=== PATIENT | male | born 1945 | race Caucasian/White ===

== ENCOUNTER 2017-09-06 06:47 | Inpatient (IN) | payer OTHER ==
[~2017-09-06] VITALS: Ht 121.9 cm; Wt 5.0 kg
[~2017-09-06 06:47] MED LIST: CARAFATE1 G PO; METFORMIN HCL500 MG PO; PEPCID40 MG PO; PRILOSEC20 MG PO; SIMVASTATIN40 MG PO; SYNTHROID50 MCG PO; ZOFRAN4 MG PO; [UNRECOGNIZED DRUG - CODE] MC
[2017-09-08] MEDS ORDERED: MIRALAX17 GM PO (08:59)
[2017-09-08] MEDS ORDERED: PEPCID20 MG PO (13:32)
== END 2017-09-08 13:37 | disposition home or self-care (01) | DRG 390 ==
LOC: ER 06:47 → SURH 14:54
PROC: BW21YZZ Computerized Tomography (CT Scan) of Abdomen and Pelvis using Other Contrast (ICD-10-PCS; principal; 2017-09-06)
DX: K56.690 Other partial intestinal obstruction (principal)

== ENCOUNTER 2020-03-06 08:54 | Emergency (ER) | payer OTHER ==
[~2020-03-06] VITALS: Ht 152.4 cm; Wt 65.8 kg
[~2020-03-06 08:54] MED LIST changes: +MIRALAX17 GM PO; +PEPCID20 MG PO
== END 2020-03-06 18:11 | disposition home or self-care (01) ==
LOC: ER 08:54
DX: K52.89 Other specified noninfective gastroenteritis and colitis (principal); Z03.818 Encounter for observation for suspected exposure to other biological agents ruled out; R10.84 Generalized abdominal pain

== ENCOUNTER → 2021-09-22 | Emergency (ER) | payer OTHER ==
[~2021-09-22] VITALS: Ht 162.6 cm; Wt 62.6 kg
== END | disposition home or self-care (01) ==
LOC: ER 07:25
DX: K29.70 Gastritis, unspecified, without bleeding (principal); E86.0 Dehydration; I10 Essential (primary) hypertension; E11.9 Type 2 diabetes mellitus without complications; E03.9 Hypothyroidism, unspecified; Z79.84 Long term (current) use of oral hypoglycemic drugs; R11.2 Nausea with vomiting, unspecified; R10.9 Unspecified abdominal pain

== ENCOUNTER 2022-01-03 02:56 | Inpatient (IN) | payer OTHER ==
[~2022-01-03] VITALS: Ht 162.6 cm; Wt 63.5 kg
--- NOTE | 2022-01-03 03:15 | NUR ---
SE RECIBE PTE MASCULINO ALERTA Y ORIENTADO EN LAS GRICEL ESFERAS REFIERE DOLOR ABDOMINAL Y VOMITOS X10 DESDE JOANNA EN LA NOCHE.
--- NOTE | 2022-01-03 04:35 | NUR ---
PACIENTE EVALUADO POR EL QUIEN ORDENA TRATAMIENTO MEDICO. SE ORIENTA PACIENTE SOBRE EL MISMO CANDELARIO REFIERE ENTENDER. RN VITALE REALIZA MUESTRAS BAJO MEDIDAS ASEPTICAS Y ADMINISTRA MEDICAMENTOS [place] ORDEN.SE HACE ENTREGA DE CONTRASTE PO.
--- NOTE | 2022-01-03 07:36 | NUR ---
SE RECIBE PTE ALERTAS, CONCIENTE EN CAMA BAJA CON BARANDAS ELEVADAS POR SEGURIDAD. SE OBSERVA PTE CON BUEN PATRON RESPIRATORIO, CANALIZADO EN PERIFERAL LT CON ANGIO #18 PATENTE. RECIBIENDO 0.9 NSS BAJANDO 150ML/HR. PEND MUESTRA DE UA PEND. PTE NPO. PEND CT ABDOMINAL CON CONTRASTE PO. SE MANITENE BAJO OBSERVACION POR CAMBIOS SIGNIFICATIVOS.
--- NOTE | 2022-01-03 10:18 | NUR ---
SE REALIZA ADMINISTRACION DE MEDICAMENTOS POR ORDEN MEDICA, SE ORIENTA PACIENTE SOBRE USO Y EFECTOS.
--- NOTE | 2022-01-03 16:01 | NUR ---
PTE ALERTA Y ORIENTADO X 3 ESFERAS EN COMPANIA DE FAMILIAR,EN JESSI CON BARANDAS ELEVADAS,SIENDO EVALUADO POR DR Brant REZA.
[2022-01-05] MEDS ORDERED: INTESTINEX680 M1 PO (08:27)
== END 2022-01-05 11:41 | disposition home or self-care (01) | DRG 389 ==
LOC: ER 02:56 → MEDJ 16:43
PROVIDERS: ADMIT Internal Medicine; ATTEND Internal Medicine
PROC: BW21YZZ Computerized Tomography (CT Scan) of Abdomen and Pelvis using Other Contrast (ICD-10-PCS; principal; 2022-01-03)
DX: K56.600 Partial intestinal obstruction, unspecified as to cause (principal); B19.9 Unspecified viral hepatitis without hepatic coma; R14.0 Abdominal distension (gaseous); K40.90 Unilateral inguinal hernia, without obstruction or gangrene, not specified as recurrent; K59.09 Other constipation; K57.30 Diverticulosis of large intestine without perforation or abscess without bleeding; R74.01 Elevation of levels of liver transaminase levels; E11.9 Type 2 diabetes mellitus without complications; Z79.4 Long term (current) use of insulin; E03.9 Hypothyroidism, unspecified

== ENCOUNTER 2022-02-08 05:35 | Day surgery (SDC) | payer OTHER ==
[~2022-02-08] VITALS: Ht 162.6 cm; Wt 63.5 kg
[~2022-02-08 05:35] MED LIST changes: +INTESTINEX680 M1 PO; +PROBIOTIC1 EAC4 PO
[2022-02-08] MEDS ORDERED: ULTRAM50 MG PO (10:53)
[2022-02-08] MEDS ORDERED: TYLENOL ARTHRI650 MG PO (10:53)
[2022-02-08] MEDS ORDERED: MIRALAX17 GM PO (10:53)
== END 2022-02-08 14:10 | disposition home or self-care (01) ==
LOC: CIR.AMB 05:35
PROVIDERS: ATTEND Surgery
DX: K40.20 Bilateral inguinal hernia, without obstruction or gangrene, not specified as recurrent (principal); Z20.822 Contact with and (suspected) exposure to COVID-19; Z88.6 Allergy status to analgesic agent; E11.9 Type 2 diabetes mellitus without complications; E03.9 Hypothyroidism, unspecified; Z79.84 Long term (current) use of oral hypoglycemic drugs
CPT/HCPCS: 49650; C1781

== ENCOUNTER 2022-11-08 21:30 | Emergency (ER) | payer OTHER ==
[~2022-11-08] VITALS: Ht 162.6 cm; Wt 66.2 kg
[~2022-11-08 21:30] MED LIST changes: +TYLENOL ARTHRI650 MG PO; +ULTRAM50 MG PO
[2022-11-09] MEDS ORDERED: LEVSIN/SL0.125 MG SL (04:24)
== END 2022-11-09 04:55 ==
LOC: ER 21:30
DX: R10.9 Unspecified abdominal pain (principal); Z88.6 Allergy status to analgesic agent; K57.30 Diverticulosis of large intestine without perforation or abscess without bleeding

== ENCOUNTER 2023-08-28 11:55 | Emergency (ER) | payer OTHER ==
[~2023-08-28] VITALS: Ht 162.6 cm; Wt 63.5 kg
[~2023-08-28 11:55] MED LIST changes: +LEVSIN/SL0.125 MG SL
[2023-08-28] MEDS ORDERED: MAGNESIUM HYDROXIDE 400 MG/5 ML ML PO STA (13:55)
[2023-08-28] MEDS ORDERED: LACTULOSE 10 G/15 ML ML PO STA (13:56)
== END 2023-08-28 16:26 | disposition home or self-care (01) ==
LOC: ER 11:55
DX: R10.9 Unspecified abdominal pain (principal); K59.00 Constipation, unspecified; Z88.6 Allergy status to analgesic agent

== ENCOUNTER 2025-05-16 09:33 | Emergency (ER) | payer OTHER ==
[~2025-05-16] VITALS: Ht 162.6 cm; Wt 61.2 kg
[2025-05-16] MEDS ORDERED: FAMOTIDINE/PF 20 MG/2 ML VIAL IV PUSH STA (10:02)
[2025-05-16] MEDS ORDERED: HYOSCYAMINE SULFATE 0.125 MG TAB.SUBL SL STA (10:03)
[2025-05-16] MEDS ORDERED: ONDANSETRON HCL 2 MG/ML VIAL IV STA (10:03)
[2025-05-16] MEDS ORDERED: DIATRIZOATE MEGLUMINE, SODIUM 30 ML BOTTLE PO STA (10:04)
[2025-05-16] MEDS ORDERED: 0.9 % SODIUM CHLORIDE 1,000 ML IV STA (10:05)
[2025-05-16] MEDS ORDERED: ONDANSETRON HCL 2 MG/ML VIAL ONE (10:06)
[2025-05-16] MEDS ORDERED: HYOSCYAMINE SULFATE 0.125 MG TAB.SUBL ONE (10:06)
[2025-05-16] MEDS ORDERED: DIATRIZOATE MEGLUMINE, SODIUM 30 ML BOTTLE ONE (10:07)
[2025-05-16] MEDS ORDERED: FAMOTIDINE/PF 20 MG/2 ML VIAL ONE (10:07)
[2025-05-16 10:49] LABS: BASO % 0.5 % (0.1-1.2); EOS # 0.07 (0.04-0.54); EOS % 0.8 % (0.7-7.0); LYMPH # 1.81 (1.18-3.74); LYMPH % 21.7 % (19.3-53.1); MEAN PLATELET VOLUME 9.80 fl (9.4-12.4); MONO # 0.64 (0.24-0.82); MONO % 7.7 % (4.7-12.5); NEUT # 5.75 (1.56-6.13); NEUT % 69.1 % (34.0-71.1); RED CELL DISTRIBUTION WIDTH 13.3 % (11.6-14.4)
[2025-05-16 10:52] LABS: ERYTHROCYTE SEDIMENTATION RATE 12 mm/hr (0-20)
[2025-05-16 11:10] LABS: URINE APPEARANCE Clear; URINE BILIRRUBIN Small (NEGATIVE); URINE BLOOD Negative; URINE COLOR Dark Yellow; URINE GLUCOSE Negative (NEGATIVE); URINE KETONE Trace (NEGATIVE); URINE LEUKOCYTE Trace; URINE NITRATE Negative; URINE PROTEIN Trace (NEGATIVE); URINE UROBILINOGEN 1.0 E.U./dl
[2025-05-16 11:13] LABS: URINE BACTERIA 16.0 uL (0.0-1933); URINE EPITHELIAL CELLS 8.5 uL (0.0-38.8); URINE RBC 11.7 uL (0.0-20.8); URINE WBC 5.5 uL (0.0-23.2)
[2025-05-16 11:19] LABS: URINE CAST 0.14 uL (0.0-1.40)
[2025-05-16 11:32] LABS: ALT/SGPT 24 U/L (12-78); AST/SGOT 10 U/L (15-37); BILIRUBIN TOTAL 0.91 mg/dL (0.3-1.2); BUN CREA RATIO 18 (7.0-25.0); CREATININE SERUM 0.82 mg/dL (0.70-1.30); GFR 90.63; GLOBULINA 3.1 G/DL (2.4-3.5); GLUCOSE FASTING 116 mg/dL (65-100); OSMOLALITY SERUM 285 MOSM/KG (275-295)
== END 2025-05-16 16:54 | disposition home or self-care (01) ==
LOC: ER 09:33
PROVIDERS: General Practice
DX: R10.9 Unspecified abdominal pain (principal); R11.10 Vomiting, unspecified; Z88.6 Allergy status to analgesic agent
CPT/HCPCS: 36415; 74022; 74177; Q9965